=== PATIENT | female | born 1990 | race Caucasian/White ===

== ENCOUNTER 2016-03-02 14:35 | Emergency (ER) | payer OTHER ==
[~2016-03-02] VITALS: Ht 172.7 cm; Wt 113.2 kg
[~2016-03-02 14:35] MED LIST: CEPH500C PO; LRT5 PO; MEDLIST
[2016-03-02 14:43] VITALS: BP 131/86; TEMP 36.8; Ht 172.7 cm; Wt 113.2 kg
[2016-03-02] MEDS ORDERED: ACET-1256 PO (14:50)
--- NOTE | 2016-03-02 14:59 | EMERGENCY ROOM VISIT NOTE ---
ED Visit Note First contact with patient: 14:48 Chief Complaint: RIGHT Arm Pain History of Present Illness: Patient is a 25-year-old female who presents to the emergency Department this afternoon for evaluation of her RIGHT forearm pain. She reports that she slipped on the ice while ambulating down steps. She struck her forearm on the handrail on the way down. She landed on her buttocks. She do not strike her head. She did not lose consciousness. The patient complains of persistent pain to the mid portion of the forearm. She reports pain with range of motion. She reports some tingling into the fingers. She denies a history of fracture or injury to the affected forearm. She rates her current discomfort as a 4/10. Patient denies any associated shoulder pain, elbow pain, or wrist pain. Medications: Reviewed and discussed with the patient. Allergies: Morphine, sumatriptan PMH: No pertinent past medical history SHx: Patient is a 25-year-old female who lives locally. ROS: All pertinent positive and negative review of systems are appropriately documented in the History of Present Illness. Physical Exam: VITAL SIGNS - Vital signs and nursing notes were reviewed. GENERAL - 25-year-old female appearing her stated age and in noticeable discomfort throughout the exam. MUSCULOSKELETAL - Active ROM of the RIGHT wrist was limited in all directions. Small area of ecchymosis developing on the volar surface of the mid RIGHT forearm. Mild Edema noted in this location. No palpable deformities. No tenderness over the radial or ulnar styloid processes. No tenderness with squeezing the forearm. No tenderness extending into the carpals. No point- tenderness over the anatomic snuffbox. Mild pain elicited with supination and pronation of the forearm. NEUROLOGIC - SENSORY: Spinothalamic tract was found to be intact with ability to discriminate sharp versus dull sensation at the level of the RIGHT elbow down to the fingertips. No sensory deficits of the dorsal column were appreciated utilizing light touch for evaluation. VASCULAR - Capillary refill was brisk. +3/5 radial pulse palpated. IMAGING: RIGHT FOREARM 2 VIEWS ROUTINE CLINICAL HISTORY: Right forearm pain status post trauma COMPARISON: None. DISCUSSION: No fractures or dislocations are visualized. IMPRESSION: No fractures or dislocations identified. ED Course: Patient was seen and evaluated by myself. Patient was provided an ice pack for comfort. She declines anything for pain in the emergency department. X-ray of the forearm was obtained. Imaging results above. Imaging results were reviewed with the patient who acknowledges understanding. She will utilize NSAIDs for break through pain at home as well as ice for comfort. The patient will follow-up with her primary care provider or return for any changing or worsening symptoms. Patient discharged home in good condition. Impression: RIGHT Forearm Contusion, Fall on Ice Discharge Instructions: You have been treated in the Emergency Department for your RIGHT Forearm Contusion. For pain control, you can use the following abyy-mqf-yrvpqmh medicines (if >12 yo): - Regular strength (325mg/tab) Tylenol (acetaminophen) 2 tabs every 4-6 hours as needed. Do not exceed 12 tablets in a 24 hour period. Avoid taking more than 4 grams (4000 mg) of Tylenol per day. This includes any other sources of acetaminophen you may take on a regular basis. - Regular strength (200 mg/tab) Advil (ibuprofen) 1-2 tabs every 4-6 hours as needed. Do not exceed a dose of 3200 mg per day. If this is a recent injury (<24 hrs), ice can be applied to the area of pain for the first 3 days to help decrease pain and inflammation. Return to the Emergency Department if your current symptoms worsen despite treatment course outlined above, or if you develop any of the following symptoms : intractable pain despite aforementioned treatment course or new onset of numbness or tingling of the fingers. Current/Historical Medications Scheduled PRN Acetaminophen (Tylenol), 1,000 MG PO Q6 PRN for Pain Allergies Coded Allergies: Morphine (Verified Allergy, Intermediate, SKIN RED & WARM, 03/02/16) Sumatriptan (Verified Allergy, Intermediate, SKIN RED & WARM, 03/02/16) Vital Signs Date Time Temp Pulse Resp B/P Pulse Ox O2 Delivery O2 Flow Rate FiO2 03/02/16 14:43 36.8 94 18 131/86 99 Room Air Departure Information Impression Primary Impression: Contusion of right lower extremity Additional Impression: Fall due to ice or snow Dispostion Home / Self-Care Condition GOOD Referrals No Doctor, Assigned (PCP) Patient Instructions [facility] Additional Instructions You have been treated in the Emergency Department for your RIGHT Forearm Contusion. For pain control, you can use the following giie-hoe-znpnfie medicines (if >12 yo): - Regular strength (325mg/tab) Tylenol (acetaminophen) 2 tabs every 4-6 hours as needed. Do not exceed 12 tablets in a 24 hour period. Avoid taking more than 4 grams (4000 mg) of Tylenol per day. This includes any other sources of acetaminophen you may take on a regular basis. - Regular strength (200 mg/tab) Advil (ibuprofen) 1-2 tabs every 4-6 hours as needed. Do not exceed a dose of 3200 mg per day. If this is a recent injury (<24 hrs), ice can be applied to the area of pain for the first 3 days to help decrease pain and inflammation. Return to the Emergency Department if your current symptoms worsen despite treatment course outlined above, or if you develop any of the following symptoms : intractable pain despite aforementioned treatment course or new onset of numbness or tingling of the fingers. Problem Qualifiers Primary Impression: Contusion of right lower extremity Encounter type: initial encounter Qualified Codes: S80.11XA - Contusion of right lower leg, initial encounter Additional Impression: Fall due to ice or snow Encounter type: initial encounter Qualified Codes: W00.9XXA - Unspecified fall due to ice and snow, initial encounter
--- NOTE | 2016-03-02 15:23 | DIAGNOSTIC IMAGING REPORT ---
RIGHT FOREARM 2 VIEWS ROUTINE CLINICAL HISTORY: Right forearm pain status post trauma COMPARISON: None. DISCUSSION: No fractures or dislocations are visualized. IMPRESSION: No fractures or dislocations identified. Electronically signed by: Domenico Farias M.D. 03/02/2016 3:22 PM Dictated Date/Time: 03/02/2016 3:21 PM
[2016-03-02 15:42] VITALS: PULSE 86; O2SAT 96
== END 2016-03-02 15:43 | disposition home or self-care (01) ==
LOC: C.EDB 14:36 → C.EDD 15:43
DX: S50.11XA Contusion of right forearm, initial encounter (principal); W00.9XXA Unspecified fall due to ice and snow, initial encounter

== ENCOUNTER → 2016-03-05 | Outpatient (CLI) | payer OTHER ==
[~2016-03-05] MED LIST changes: +ACET-1256 PO; -CEPH500C PO; -LRT5 PO; -MEDLIST
[2016-03-05 16:10] LABS: URINE APPEARANCE TURBID (CLEAR); URINE BILIRUBIN NEG (NEG); URINE COLOR DK YELLOW; URINE EPITHELIAL CELL AUTO >30 /lpf (0-5); URINE NITRITE NEG (NEG); URINE PH 5.5 (4.5-7.5); URINE SPECIFIC GRAVITY 1.024 (1.000-1.030); UROBILINOGEN NEG (NEG)
[2016-03-05 16:14] LABS: MANUAL MICROSCOPIC REQUIRED? NO; REVIEW REQ? NO
[2016-03-10 03:24] LABS: CHLAMYDIA TRACH RNA*** NOT DETECTED (NOT DETECTED); GC (NEIS GONORRHOEAE)RNA** NOT DETECTED (NOT DETECTED)
== END | disposition home or self-care (01) ==
LOC: C.LABSPEC 14:43
PROVIDERS: ATTEND Obstetrics & Gynecology
DX: Z12.4 Encounter for screening for malignant neoplasm of cervix (principal); R30.0 Dysuria

== ENCOUNTER → 2016-03-05 | Outpatient (CLI) | payer OTHER | END | disposition home or self-care (01) | LOC: C.PAPS 17:51 | PROVIDERS: ATTEND Obstetrics & Gynecology | DX: Z12.4 Encounter for screening for malignant neoplasm of cervix (principal); Z87.42 Personal history of other diseases of the female genital tract ==

== ENCOUNTER → 2016-09-21 | Outpatient (CLI) | payer OTHER ==
--- NOTE | 2016-09-21 14:36 | MAMMOGRAPHY REPORT ---
ULTRASOUND OF LEFT BREAST: 09/21/2016 CLINICAL HISTORY: 26-year-old woman with a small raised palpable lump in the 4:00 left breast that sh estuardo has felt for a few weeks. It is painful, no significant erythema. No nipple discharge. Family hi story of breast cancer both maternal and paternal lineage. The patient reports her doctor felt 2 add itional lumps in the lower outer quadrant of the left breast while evaluating this lump. COMPARISON: No prior exams were available for comparison. FINDINGS: On visual inspection, there is an oval raised 4 mm mildly erythematous mass in the area of concern, within the 4:00 left breast, 5 cm from the nipple. Targeted ultrasound performed over this mass demonstrates a hypoechoic intradermal mass that is oval, parallel in orientation and circumscri bed. It measures 3.9 x 2.1 x 4.8 mm, and extends to the dermal surface. This is most compatible wit h an epidermal inclusion cyst and is benign. Additional scanning throughout the left lower outer shaneka drant failed to demonstrate any additional masses within the dermis and the patient is unable to poin t out the locations of the additional masses. There is no discrete solid or cystic mass within the d eeper breast parenchyma throughout the left lower outer quadrant. IMPRESSION: ACR BI-RADS CATEGORY 2: BENIGN 1. The palpable lump in the 4:00 left breast identified by the patient correlates with a benign intr adermal mass, most likely an epidermal inclusion cyst. Conservative management with NSAIDs and hot c ompresses it was recommended. 2. The patient was unable to point out the 2 additional masses felt by her physician and I was unabl e to see any additional intradermal or breast parenchymal masses on ultrasound. Therefore, clinical follow-up is recommended, as biopsy of a clinically suspicious mass should not be precluded by negati ve imaging. These results and recommendations were discussed with the patient at the time of the exam. Martha Lane M.D. ay/:09/21/2016 10:37:15 Pharmacy Student: Deyanira GIBBONS)([place]), [facility] letter sent: Normal 1/2 BI-RADS Code: ACR BI-RADS Category 2: Benign
== END | disposition home or self-care (01) ==
LOC: C.MAMM 09:38
PROVIDERS: ATTEND Nurse Practitioner
DX: N63 Unspecified lump in breast (principal)

== ENCOUNTER → 2016-12-22 | Outpatient (CLI) | payer OTHER ==
[2016-12-22 18:57] LABS: URINE APPEARANCE CLEAR (CLEAR); URINE BILIRUBIN NEG (NEG); URINE COLOR YELLOW; URINE EPITHELIAL CELL AUTO >30 /lpf (0-5); URINE NITRITE NEG (NEG); URINE SPECIFIC GRAVITY 1.018 (1.000-1.030); UROBILINOGEN NEG (NEG)
[2016-12-22 19:00] LABS: MANUAL MICROSCOPIC REQUIRED? NO; REVIEW REQ? NO
== END | disposition home or self-care (01) ==
LOC: C.LAB 17:54
PROVIDERS: ATTEND Obstetrics & Gynecology
DX: R39.9 Unspecified symptoms and signs involving the genitourinary system (principal)